=== PATIENT | male | born 1955 | race Caucasian/White ===

== ENCOUNTER 2019-12-27 05:13 | Day surgery (SDC) | payer MEDICAID, OTHER ==
[2019-12-27] MEDS ORDERED: Midazolam 1 MG/ML 2 ML SDV IV ONE ×7 (05:14→06:34)
[2019-12-27] MEDS ORDERED: fentaNYL 100 MCG/2 ML SDV IV ONE ×5 (05:14→06:37)
[2019-12-27] MEDS ORDERED: Dextrose 5%-0.45% NaCl 1,000 ML IV SCH (06:00)
[2019-12-27] MEDS ORDERED: Sodium Chloride 0.9% 10 ML Syringe FLUSH PRN (06:00)
[2019-12-27] MEDS ORDERED: Midazolam 1 MG/ML 2 ML SDV ONE (06:10)
[2019-12-27] MEDS ORDERED: fentaNYL 100 MCG/2 ML SDV ONE (06:11)
--- NOTE | 2019-12-27 12:56 | OR ---
DATE: 12/27/2019 PROCEDURES: Total colonoscopy, narrow-band imaging, and cold snare polypectomy. INSTRUMENT USED: [id number] Olympus video colonoscope. PREMEDICATIONS: Fentanyl 150 mcg intravenous, Versed 4 mg intravenous, nasal O2 cannula. The procedure was done under pulse oximetry, BP recording, and electronic device monitor. INDICATION: Screening colonoscopic examination is done for detection of any polypoid lesions and removal, endoscopic hemostasis therapy if needed. DESCRIPTION OF PROCEDURE: Initial rectal exam was unremarkable. Rigid anoscopy showed small internal hemorrhoids without bleeding from them. The colonoscope was passed with ease. Numerous scattered diverticula were noted in the distal left colon along with deformity. The scope was passed with ease up to the ileocecal area. Photographs were taken of the normal-appearing cecum identified by landmarks of appendiceal orifice and double-bulged ileocecal folds. No bleeding was noted from any of the visualized areas at the commencement of the examination. The bowel preparation was found to be adequate, scale 2 in right and transverse colon, 3 in left colon, total score 7. No stricture. No vascular ectasia. No large isolated ulcerations seen. No evidence of diffuse inflammatory bowel disease in the form of friability, contact bleeding, or ulcerations. Probing the proximal sides of folds and flexures using adequate distention and clearing up the stool material, withdrawal of the scope was made. In the mid descending colon, diminutive benign-appearing polyp was noted, NBI views were obtained, cold snare polypectomy was done, the tissue was retrieved and sent for histopathology. No bleeding was noted from any of the visualized areas at the completion of examination. IMPRESSION: 1. Internal hemorrhoids. 2. Diverticulosis. 3. Diminutive descending colon polyp. The patient tolerated the procedure well. [facility] /[id number]
== END 2019-12-27 08:51 | disposition home or self-care (01) ==
LOC: DL.ENDO 05:13
PROVIDERS: ATTEND Internal Medicine Gastroenterology
DX: Z12.11 Encounter for screening for malignant neoplasm of colon (principal); D12.4 Benign neoplasm of descending colon; K57.30 Diverticulosis of large intestine without perforation or abscess without bleeding; K64.8 Other hemorrhoids; I10 Essential (primary) hypertension; E78.5 Hyperlipidemia, unspecified; E11.9 Type 2 diabetes mellitus without complications; G47.33 Obstructive sleep apnea (adult) (pediatric); D69.3 Immune thrombocytopenic purpura; M19.90 Unspecified osteoarthritis, unspecified site; E66.09 Other obesity due to excess calories; Z68.37 Body mass index [BMI] 37.0-37.9, adult; Z79.84 Long term (current) use of oral hypoglycemic drugs; Z79.82 Long term (current) use of aspirin; Z79.01 Long term (current) use of anticoagulants; Z79.899 Other long term (current) drug therapy; Z86.718 Personal history of other venous thrombosis and embolism; Z90.79 Acquired absence of other genital organ(s); Z96.659 Presence of unspecified artificial knee joint
CPT/HCPCS: 45385; J2250; J3010; J7042

== ENCOUNTER 2020-04-12 06:01 | Day surgery (SDC) | payer OTHER ==
[2020-04-12] MEDS ORDERED: Midazolam 1 MG/ML 2 ML SDV IV ONE ×3 (06:02→07:04)
[2020-04-12] MEDS ORDERED: fentaNYL 100 MCG/2 ML SDV IV ONE ×3 (06:02→07:03)
[2020-04-12] MEDS ORDERED: Dextrose 5%-0.45% NaCl 1,000 ML IV SCH (06:15)
[2020-04-12] MEDS ORDERED: Midazolam 1 MG/ML 2 ML SDV ONE (06:20)
[2020-04-12] MEDS ORDERED: fentaNYL 100 MCG/2 ML SDV ONE (06:21)
--- NOTE | 2020-04-12 08:19 | OR ---
DATE: 04/12/2020 PROCEDURES: 1. Esophagogastroduodenoscopy. 2. Narrow-band imaging. 3. Multiple pinch biopsies. INSTRUMENT USED: [id number] Olympus video panendoscope. PREMEDICATIONS: No oral or topical anesthesia was used. Fentanyl 100 mcg intravenous and Versed 2 mg intravenous. Nasal O2 cannula. The procedure was done under pulse oximetry, BP recording, and phototypesetting equipment monitor. INDICATION: The patient with unexplained iron-deficiency anemia, on long-term aspirin and Xarelto as well as Omeprazole. Esophagogastroduodenoscopy is performed for detection of any active erosive lesions, Lewis esophagus and/or malignancy also under consideration, H pylori status to be determined, small bowel biopsies to be obtained for celiac disease if indicated, endoscopic hemostasis therapy if needed. DESCRIPTION OF PROCEDURE: The scope was passed with ease. Adequate visualization of the esophagus was made from proximal to distal areas. No upper esophageal lesions were identified. No distal esophageal stricture. No uphill or downhill esophageal varices. No Arleth-Pardo tear. No evidence of erosive esophagitis by Nogales criteria. No esophageal polyp or tumor mass was identified. A sliding hiatal hernia was noted. The Z-line was seen at around 35 cm distal to the oral verge. Four-quadrant biopsies were taken from the pink columnar epithelium 35 cm distal to the oral verge and sent for any histopathologic evidence of intestinal metaplasia. NBI views were obtained of the area. No proximal gastric varices were noted. Gastric fundus examination showed numerous diminutive benign-appearing polyps. No gastric ulcer, malignant mass, or vascular ectasia was identified. Gastric antral erosion was noted without bleeding from it. The duodenal bulb showed no ulcer. The visualized second part of the duodenum was unremarkable. Multiple pinch biopsies, 4 in number, were taken from different areas of the second part of the duodenum, and tissues were also obtained from the duodenal bulb at the 9 and 12 o'clock positions and sent for any histopathologic evidence of celiac disease. Multiple pinch biopsies were also obtained from the gastric antrum and proximal body and sent for PyloriTek test for H pylori and histopathology. No bleeding was noted from any of the visualized areas at the completion of the examination. Photographs were taken of the duodenal bulb, gastric antrum and fundus, and distal esophagus. Photographs were taken of the proximal gastric mucosa beyond the GE junction, showing Noe's erosions without bleeding from them, NBI views were obtained, photographs were taken. IMPRESSION: 1. Noe's erosions. 2. Sliding hiatal hernia. 3. Diminutive gastric fundus polyps. 4. Gastric antral erosion. The patient tolerated the procedure well. [facility] /[id number]
== END 2020-04-12 09:25 | disposition home or self-care (01) ==
LOC: DL.ENDO 06:01
PROVIDERS: ATTEND Internal Medicine Gastroenterology
DX: K20.9 Esophagitis, unspecified (principal); K25.9 Gastric ulcer, unspecified as acute or chronic, without hemorrhage or perforation; K31.7 Polyp of stomach and duodenum; K44.9 Diaphragmatic hernia without obstruction or gangrene; K31.89 Other diseases of stomach and duodenum; D50.9 Iron deficiency anemia, unspecified; E66.09 Other obesity due to excess calories; I10 Essential (primary) hypertension; D69.3 Immune thrombocytopenic purpura; G47.33 Obstructive sleep apnea (adult) (pediatric); E11.9 Type 2 diabetes mellitus without complications; K57.30 Diverticulosis of large intestine without perforation or abscess without bleeding; Z86.018 Personal history of other benign neoplasm; Z98.890 Other specified postprocedural states; Z85.46 Personal history of malignant neoplasm of prostate; Z90.79 Acquired absence of other genital organ(s); Z86.718 Personal history of other venous thrombosis and embolism; Z95.828 Presence of other vascular implants and grafts; Z79.82 Long term (current) use of aspirin; Z79.899 Other long term (current) drug therapy; Z68.38 Body mass index [BMI] 38.0-38.9, adult
CPT/HCPCS: 43239; 87077; J2250; J3010; J7042

== ENCOUNTER 2024-01-04 07:14 | Day surgery (SDC) | payer MEDICARE ==
[2024-01-04] MEDS ORDERED: Midazolam 1 MG/ML 2 ML SDV IV ONE (07:15)
[2024-01-04] MEDS ORDERED: fentaNYL 100 MCG/2 ML SDV IV ONE (07:15)
[2024-01-04] MEDS ORDERED: Midazolam 1 MG/ML 2 ML SDV ONE (07:41)
[2024-01-04] MEDS ORDERED: fentaNYL 100 MCG/2 ML SDV ONE (07:41)
[2024-01-04] MEDS: Dextrose 5%-0.45% NaCl 1,000 ML IV SCH (07:45)
[2024-01-04] MEDS: fentaNYL 100 MCG/2 ML SDV IV ONE ×2 (08:39→08:40)
[2024-01-04] MEDS: Midazolam 1 MG/ML 2 ML SDV IV ONE ×2 (08:40→08:41)
== END 2024-01-04 10:19 | disposition home or self-care (01) ==
LOC: DL.ENDO 07:14
PROVIDERS: ATTEND Internal Medicine Gastroenterology
DX: K29.50 Unspecified chronic gastritis without bleeding (principal); R19.5 Other fecal abnormalities; K21.9 Gastro-esophageal reflux disease without esophagitis; E11.9 Type 2 diabetes mellitus without complications; I10 Essential (primary) hypertension; K22.70 Barrett's esophagus without dysplasia; E66.09 Other obesity due to excess calories; Z68.38 Body mass index [BMI] 38.0-38.9, adult
CPT/HCPCS: 43239; 87077; 88305; J2250; J3010; J7042

== ENCOUNTER → 2024-01-05 | Day surgery (SDC) | payer MEDICARE ==
[~2024-01-05] MED LIST: Dextrose 5%-0.45% NaCl 1,000 ML IV SCH
[2024-01-05] MEDS: fentaNYL 100 MCG/2 ML SDV IV ONE ×4 (07:28→07:41)
[2024-01-05] MEDS: Midazolam 1 MG/ML 2 ML SDV IV ONE ×6 (07:29→07:37)
== END ==
LOC: DL.ENDO 06:30
PROVIDERS: ATTEND Internal Medicine Gastroenterology
DX: K57.30 Diverticulosis of large intestine without perforation or abscess without bleeding (principal); K22.70 Barrett's esophagus without dysplasia; K21.9 Gastro-esophageal reflux disease without esophagitis; I10 Essential (primary) hypertension; E78.5 Hyperlipidemia, unspecified; E11.9 Type 2 diabetes mellitus without complications; G47.33 Obstructive sleep apnea (adult) (pediatric); E66.09 Other obesity due to excess calories; Z68.38 Body mass index [BMI] 38.0-38.9, adult; Z79.899 Other long term (current) drug therapy
CPT/HCPCS: J2250; J3010